=== PATIENT | female | born 1960 | race African-American/Black ===

== ENCOUNTER → 2017-02-10 | Outpatient (CLI) | payer BC ==
[~2017-02-10] MED LIST: ASMANEX220 MCG PO; ASPIRIN81 M1 PO; BACTRIM DS 8001 TA1 PO; CLINDAMYCIN150 MG PO; COZAAR100 MG PO; HYZAAR 50/12.5M1 TAB PO; LOSARTAN POTASS1 TA9 PO; MEDROL DOSEPAK4 MG PO; METFORMIN ER500 MG PO; METOPROLOL SUCC50 M1 PO; METOPROLOL50 MG PO; NAPROSYN500 MG PO; PERCOCET 325 MG1 TA2 PO; PRILOSEC20 MG PO; ZITHROMAX250 MG PO
[2017-02-10 07:32] LABS: HEMOGLOBIN 12.1 g/dl (12.0-16.0); MEAN CELL VOLUME 85.8 fl (81.0-99.0); MEAN CORPUSCULAR HGB 28.1 pg (27.0-31.0); MEAN CORPUSCULAR HGB CONC 32.7 g/dl (33.0-37.0); MEAN PLATELET VOLUME 9.2 fl (9.6-12.3); RED BLOOD COUNT 4.31 10*6/uL (4.10-5.10); RED CELL DISTRI WIDTH 13.3 % (0-14.5); WHITE BLOOD COUNT 4.3 10*3/uL (4.8-10.8)
[2017-02-10 08:05] LABS: ALBUMIN 3.6 gm/dl (3.1-4.5); BUN 16 mg/dl (7-24); CARBON DIOXIDE 27 mmol/L (21-32); CHLORIDE 103 mmol/L (98-107); GLUCOSE 93 mg/dL (65-99); HDL CHOLESTEROL 89 mg/dl (40-60); POTASSIUM 3.7 mmol/L (3.5-5.1); SODIUM 141 mmol/L (136-145)
[2017-02-10 08:09] LABS: ALKALINE PHOSPHATASE 85 U/L (45-117); BILIRUBIN, TOTAL 0.3 mg/dl (0.2-1.0); CHOLESTEROL 200 mg/dL (<200); EST GLOM FILT AFRICAN AMERICAN > 60 ml/min; LDL CHOLESTEROL 100 mg/dL (9-159); SGOT/AST 16 IU/L (3-35); SGPT/ALT 29 U/L (12-78); TRIGLYCERIDES 56 mg/dl (<150); VLDL CHOLESTEROL 11 mg/dL (6-40)
[2017-02-10 08:25] LABS: HEMOGLOBIN A1c 5.2 % (4.8-5.6)
== END | disposition home or self-care (01) ==
LOC: LAB 07:15
PROVIDERS: Family Medicine
DX: I10 Essential (primary) hypertension (principal); E74.9 Disorder of carbohydrate metabolism, unspecified; D64.9 Anemia, unspecified; E55.9 Vitamin D deficiency, unspecified

== ENCOUNTER → 2017-04-06 | Outpatient (CLI) | payer BC | END | disposition home or self-care (01) | LOC: MRI 04-01 15:00 | DX: M75.101 Unspecified rotator cuff tear or rupture of right shoulder, not specified as traumatic (principal) ==

== ENCOUNTER → 2017-05-15 | Outpatient (CLI) | payer OTHER ==
[2017-05-15 07:33] LABS: HEMATOCRIT 39.3 % (37.0-47.0); HEMOGLOBIN 12.4 g/dl (12.0-16.0); MEAN CELL VOLUME 88.1 fl (81.0-99.0); MEAN CORPUSCULAR HGB 27.8 pg (27.0-31.0); MEAN CORPUSCULAR HGB CONC 31.6 g/dl (33.0-37.0); MEAN PLATELET VOLUME 9.8 fl (9.6-12.3); RED BLOOD COUNT 4.46 10*6/uL (4.10-5.10); RED CELL DISTRI WIDTH 12.9 % (0-14.5); WHITE BLOOD COUNT 3.2 10*3/uL (4.8-10.8)
[2017-05-15 07:55] LABS: ALBUMIN 3.9 gm/dl (3.1-4.5); ALKALINE PHOSPHATASE 81 U/L (45-117); BILIRUBIN, TOTAL 0.4 mg/dl (0.2-1.0); BUN 17 mg/dl (7-24); CARBON DIOXIDE 31 mmol/L (21-32); CHLORIDE 102 mmol/L (98-107); EST GLOM FILT AFRICAN AMERICAN > 60 ml/min; GLUCOSE 96 mg/dL (65-99); POTASSIUM 3.8 mmol/L (3.5-5.1); SGOT/AST 19 IU/L (3-35); SGPT/ALT 28 U/L (12-78); SODIUM 144 mmol/L (136-145); TOTAL PROTEIN 7.5 gm/dL (6.4-8.2)
== END | disposition home or self-care (01) ==
LOC: LAB 06:56
PROVIDERS: Family Medicine
DX: E55.9 Vitamin D deficiency, unspecified (principal); I10 Essential (primary) hypertension; D72.819 Decreased white blood cell count, unspecified

== ENCOUNTER → 2017-06-03 | Outpatient (CLI) | payer OTHER | END | disposition home or self-care (01) | LOC: ORTHO 03:20 | DX: M17.12 Unilateral primary osteoarthritis, left knee (principal) ==

== ENCOUNTER → 2017-08-18 | Outpatient (CLI) | payer OTHER ==
[2017-08-18 10:54] LABS: HEMATOCRIT 39.3 % (37.0-47.0); HEMOGLOBIN 12.5 g/dl (12.0-16.0); MEAN CELL VOLUME 90.8 fl (81.0-99.0); MEAN CORPUSCULAR HGB 28.9 pg (27.0-31.0); MEAN CORPUSCULAR HGB CONC 31.8 g/dl (33.0-37.0); MEAN PLATELET VOLUME 10.4 fl (9.6-12.3); RED BLOOD COUNT 4.33 10*6/uL (4.10-5.10); RED CELL DISTRI WIDTH 13.1 % (0-14.5); WHITE BLOOD COUNT 3.5 10*3/uL (4.8-10.8)
[2017-08-18 11:07] LABS: ALBUMIN 3.6 gm/dl (3.1-4.5); BUN 13 mg/dl (7-24); CHLORIDE 103 mmol/L (98-107); CHOLESTEROL 210 mg/dL (<200); HDL CHOLESTEROL 98 mg/dl (40-60); LDL CHOLESTEROL 103 mg/dL (9-159); POTASSIUM 3.6 mmol/L (3.5-5.1); SGOT/AST 19 IU/L (3-35); SGPT/ALT 24 U/L (12-78); SODIUM 139 mmol/L (136-145); TOTAL PROTEIN 7.3 gm/dL (6.4-8.2); TRIGLYCERIDES 43 mg/dl (<150); VLDL CHOLESTEROL 9 mg/dL (6-40)
[2017-08-18 11:15] LABS: ALKALINE PHOSPHATASE 103 U/L (45-117); THYROID STIM HORMONE (HS) 0.731 uIU/ml (0.358-4.75)
== END | disposition home or self-care (01) ==
LOC: LAB 10:29
PROVIDERS: Family Medicine
DX: D64.9 Anemia, unspecified (principal); E55.9 Vitamin D deficiency, unspecified; I10 Essential (primary) hypertension; E05.90 Thyrotoxicosis, unspecified without thyrotoxic crisis or storm; Z79.899 Other long term (current) drug therapy

== ENCOUNTER → 2018-05-06 | Outpatient (CLI) | payer OTHER | LOC: ORTHO 19:38 | DX: M77.32 Calcaneal spur, left foot (principal) ==

== ENCOUNTER → 2018-05-18 | Outpatient (CLI) | payer OTHER ==
[2018-05-18 10:21] LABS: HEMATOCRIT 39.6 % (37.0-47.0); MEAN CELL VOLUME 92.5 fl (81.0-99.0); MEAN CORPUSCULAR HGB CONC 30.3 g/dl (33.0-37.0); MEAN PLATELET VOLUME 10.1 fl (9.6-12.3); RED BLOOD COUNT 4.28 10*6/uL (4.10-5.10); RED CELL DISTRI WIDTH 12.5 % (0-14.5); WHITE BLOOD COUNT 3.9 10*3/uL (4.8-10.8)
[2018-05-18 10:22] LABS: ALBUMIN 3.8 gm/dl (3.1-4.5); ALKALINE PHOSPHATASE 91 U/L (45-117); BUN 19 mg/dl (7-24); CHLORIDE 105 mmol/L (98-107); CHOLESTEROL 204 mg/dL (<200); CREATININE 0.93 mg/dL (0.55-1.02); HDL CHOLESTEROL 96 mg/dl (40-60); LDL CHOLESTEROL 95 mg/dL (9-159); POTASSIUM 3.7 mmol/L (3.5-5.1); SGOT/AST 16 IU/L (3-35); SGPT/ALT 28 U/L (12-78); SODIUM 144 mmol/L (136-145); TOTAL PROTEIN 7.6 gm/dL (6.4-8.2); TRIGLYCERIDES 66 mg/dl (<150); VLDL CHOLESTEROL 13 mg/dL (6-40)
== END | disposition home or self-care (01) ==
LOC: LAB 09:13
PROVIDERS: Family Medicine
DX: E78.00 Pure hypercholesterolemia, unspecified (principal); E74.9 Disorder of carbohydrate metabolism, unspecified; I10 Essential (primary) hypertension; D72.819 Decreased white blood cell count, unspecified; Z79.899 Other long term (current) drug therapy

== ENCOUNTER → 2018-07-30 | Outpatient (CLI) | payer OTHER ==
[2018-07-30 08:28] LABS: CPK 104 U/L (26-192)
[2018-07-31 07:03] LABS: RHEUMATOID ARTHRITIS FACTOR <10.0 IU/mL (0.0-13.9)
== END | disposition home or self-care (01) ==
LOC: LAB 07:34
PROVIDERS: Family Medicine
DX: M79.1 Myalgia (principal); M25.50 Pain in unspecified joint

== ENCOUNTER → 2018-08-20 | Outpatient (CLI) | payer OTHER | END | disposition home or self-care (01) | LOC: MRI 09:46 | DX: M19.011 Primary osteoarthritis, right shoulder (principal); M75.51 Bursitis of right shoulder; M75.52 Bursitis of left shoulder; M75.82 Other shoulder lesions, left shoulder; M75.81 Other shoulder lesions, right shoulder ==

== ENCOUNTER → 2019-03-09 | Outpatient (CLI) | payer OTHER ==
[~2019-03-09] MED LIST changes: +PERCOCET 5-3251 EACH PO; +ZOFRAN4 MG PO
== END | disposition home or self-care (01) ==
LOC: RESCLI 14:25
DX: J45.909 Unspecified asthma, uncomplicated (principal); J18.9 Pneumonia, unspecified organism; R06.02 Shortness of breath; R05 Cough; I10 Essential (primary) hypertension; R09.89 Other specified symptoms and signs involving the circulatory and respiratory systems; E66.3 Overweight; Z79.899 Other long term (current) drug therapy; Z91.040 Latex allergy status

== ENCOUNTER → 2019-05-05 | Outpatient (CLI) | payer OTHER ==
[2019-05-05 16:09] LABS: BILIRUBIN NEGATIVE (NEGATIVE); BLOOD NEGATIVE (NEGATIVE); CLARITY CLEAR (CLEAR); COLOR YELLOW (YELLOW); GLUCOSE NEGATIVE (NEGATIVE); KETONE NEGATIVE (NEGATIVE); LEUKO ESTERASE TRACE (NEGATIVE); NITRITE NEGATIVE (NEGATIVE); PH 7.5 (5.0-9.0)
[2019-05-05 16:11] LABS: BASO % 0.3 % (0.0-1.0); EOS # 0.1 10*3/uL (0.0-0.4); EOS % 4.4 % (1.0-4.0); HEMATOCRIT 39.5 % (37.0-47.0); HEMOGLOBIN 12.4 g/dl (12.0-16.0); LYMPH # 1.5 10*3/uL (1.3-4.4); LYMPH % 46.7 % (27.0-41.0); MEAN CELL VOLUME 93.4 fl (81.0-99.0); MEAN CORPUSCULAR HGB 29.3 pg (27.0-31.0); MEAN CORPUSCULAR HGB CONC 31.4 g/dl (33.0-37.0); MEAN PLATELET VOLUME 9.8 fl (9.6-12.3); MONO # 0.4 10*3/uL (0.1-1.0); MONO % 13.6 % (3.0-9.0); NEUT # 1.1 10*3/uL (2.3-7.9); PLATELET COUNT AUTOMATED 206 10*3/uL (130-400); RED BLOOD COUNT 4.23 10*6/uL (4.10-5.10); WHITE BLOOD COUNT 3.2 10*3/uL (4.8-10.8)
[2019-05-05 16:17] LABS: BACTERIA 1+; HYALINE CAST 0-2
[2019-05-05 16:32] LABS: BUN 21 mg/dl (7-24); CHLORIDE 105 mmol/L (98-107); CREATININE 0.96 mg/dL (0.55-1.02); POTASSIUM 3.8 mmol/L (3.5-5.1); SODIUM 142 mmol/L (136-145)
== END | disposition home or self-care (01) ==
LOC: LAB 13:57
PROVIDERS: Orthopaedic Surgery
DX: J84.10 Pulmonary fibrosis, unspecified (principal); M75.102 Unspecified rotator cuff tear or rupture of left shoulder, not specified as traumatic

== ENCOUNTER → 2019-05-06 | Outpatient (CLI) | payer OTHER ==
--- NOTE | ~2019-05-06 | EKG ---
[place], [place] ELECTROCARDIOGRAM REPORT NAME: KUSHAL RYAN UNIT #: [id number] ROOM: DOCTOR: LAVERNE DRAFT REPORT BIRTHDATE: [birth year] [facility] [place] Test Date: 2019-05-06 Test Time: 15:24:06 Pat Name: KUSHAL RYAN Department: Room: Gender: F Paleology Professor: NORMA : 1960 Requested By: SINDHU HERNANDEZ Order Number: [id number] Reading MD: Jewel Gupta Measurements Intervals [place] Rate: 82 P: 73 ND: 170 QRS: 10 QRSD: 61 T: 43 QT: 359 QTc: 420 Interpretive Statements Sinus rhythm Probable left atrial enlargement Electronically Signed On 05-08-2019 12:48:44 PDT by Jewel Gupta CM:EKGRPT:ELECTROCARDIOGRAM REPORT 1524 [id number] SINDHU LAMAR DRAFT REPORT SINDHU HERNANDEZ DO
== END | disposition home or self-care (01) ==
LOC: CARD 15:00
DX: M75.102 Unspecified rotator cuff tear or rupture of left shoulder, not specified as traumatic (principal)

== ENCOUNTER → 2019-05-12 | Day surgery (SDC) | payer OTHER ==
[2019-05-05 14:10] VITALS: BP 132/57
[~2019-05-12] VITALS: Ht 160 cm; Wt 69.9 kg
[2019-05-12] VITALS (7 sets, daily range): BP systolic 120–144; BP diastolic 64–88
--- NOTE | ~2019-05-12 | O ---
[place], [place] OPERATIVE NOTE NAME: [id number] UNIT #: [id number] ROOM: DOCTOR: SINDHU GROVE DO BIRTHDATE: [birth year] DOS: 05/12/2019 PREOPERATIVE DIAGNOSES: Left shoulder partial rotator cuff tear, impingement and acromioclavicular arthritis. POSTOPERATIVE DIAGNOSES: Left shoulder partial rotator cuff tear, impingement, acromioclavicular arthritis and loose body and labral tear. SURGICAL PROCEDURE: Left shoulder arthroscopy with debridement of the partial rotator cuff tear and removal of the glenohumeral loose body and debridement of the labral tear and arthroscopic subacromial decompression and Libertad procedure. SURGEON: Sindhu Grove DO BOIL OFF MACHINE OPERATOR CLOTH: Tiffanie Reyes. ANESTHESIA: BLACK [place]. Interscalene block, general endotracheal intubation. INDICATIONS: The patient is a 59-year-old female with a history of pain and disability about the left shoulder. At times, she has severe pain and weakness. This has been unrelieved with conservative care. MRI indicated a partial rotator cuff tear with impingement at the subacromial region and acromioclavicular joint arthritis. The risks and benefits of the procedure were explained to the patient preoperatively. Preoperative labs and x-rays were obtained. DESCRIPTION OF PROCEDURE: The left upper extremity was marked in the holding room. The patient was brought to the operative suite after an interscalene block had been performed by Anesthesia. The patient was placed supine on the shoulder table. General anesthetic with endotracheal intubation was performed. The patient received Ancef 2 grams IV piggyback preoperatively. The left upper extremity was prepped and draped in the usual orthopedic manner. Time-out was performed. The area about the posterior, lateral and anterior portals was injected with Marcaine 0.5% with epinephrine. The posterior portal was created 1 cm distal to the lateral posterior acromion. This was made sharply with a scalpel through the dermis and subcutaneous tissue but not into the joint. The blunt trocar and cannula were used to enter the glenohumeral joint. The trocar was removed. The arthroscopy camera was placed through the cannula. The inflow and the outflow were established through the cannula. The shoulder was evaluated in a systematic fashion. There was noted to be an inferior degenerative tear in the labrum as well as from irritation at the biceps tendon. Loose body was noted within the glenohumeral joint. The glenoid and the humeral articular surface appeared intact. The camera was used to locate the rotator interval. The switching stick was placed through the camera sheath. The area of the anterior portal was made sharply with a scalpel. A 5.75 mm cannula was placed over the switching stick and advanced into the joint. The arthroscopy camera was returned through the cannula within the posterior portal. The instrumentation was placed through the anterior portal including a full [place], [place] OPERATIVE NOTE NAME: KUSHAL RYAN UNIT #: [id number] ROOM: DOCTOR: SINDHU GROVE DO BIRTHDATE: [birth year] radius resector and an Arthrocare arthroscopy wand. The undersurface of the biceps tendon was evaluated and the minimal synovitis was debrided with the arthroscopy wand. The inferior degenerative changes within the labrum were debrided with the arthroscopy wand. The full-radius resector was used to remove and suck out the loose body, which appeared to be cartilaginous and bony in nature. When this was completed, the remainder of the glenohumeral joint was evaluated and no significant abnormalities were appreciated. The instrumentation was removed and the blunt trocar and cannula were used to enter the posterior portal and into the subacromial space. A lateral portal was created. The arthroscopy camera was placed through the cannula posteriorly and the blunt trocar was placed laterally. The undersurface of the acromion was cleared of bursal tissue using the blunt trocar. Two spinal needles were used to place at the anterior acromion laterally and medially at the acromioclavicular joint. Under visualization of the arthroscopy camera, the bursal tissue was debrided using the arthroscopy wand as well as a full radius resector. Minimal tearing was noted in the supraspinatus tendon and this was gently debrided using the arthroscopy wand. This did not appear to be more than 25%. When the undersurface of the acromion and the acromioclavicular joint had been cleared of bursal tissue and the capsule at the acromioclavicular joint, the arthroscopy wand was used to release the coracoacromial ligament. This was completed. The bur was placed through the lateral portal and the anterior portion of the acromion was debrided with the oblong bur as was the acromioclavicular joint. The portals were switched using the arthroscopy camera laterally and the full radius resector and bur posteriorly to further debride the acromioclavicular joint and anterior portion of the acromion. When this was completed, the shoulder was copiously irrigated with normal saline with epinephrine. Instrumentation was removed. The portals were expressed of any excess fluid. The portals were closed with 3-0 nylon in a simple fashion. Xeroform, 4 x 4s, ABDs, and Tegaderm dressing were applied. The patient was placed in a sling and returned to a supine position. The anesthetic was reversed. The patient was extubated and taken to the recovery room in satisfactory condition. Sponge and needle count correct. ESTIMATED BLOOD LOSS: 10 mL. FINDINGS: 1. Left shoulder partial rotator cuff tear, supraspinatus tendon. 2. Glenohumeral loose body. 3. Inferior degenerative tear of the labrum. 4. Subacromial impingement. 5. Acromioclavicular joint arthritis. COMPLICATIONS: None. [place], [place] OPERATIVE NOTE NAME: KUSHAL RYAN UNIT #: [id number] ROOM: DOCTOR: SINDHU GROVE DO BIRTHDATE: [birth year] SPECIMENS: None. DRAINS: None. PACKING: None. SINDHU GROVE DO CM:OPRECORD:OPERATIVE NOTE 1050 1112 SINDHU GROVE DO 05/12/19 1112 interface
== END | disposition home or self-care (01) ==
LOC: SDC 05-05 14:00
DX: M75.112 Incomplete rotator cuff tear or rupture of left shoulder, not specified as traumatic (principal); M65.9 Synovitis and tenosynovitis, unspecified; M25.812 Other specified joint disorders, left shoulder; M13.812 Other specified arthritis, left shoulder; I10 Essential (primary) hypertension; E11.9 Type 2 diabetes mellitus without complications; Z91.040 Latex allergy status; Z98.890 Other specified postprocedural states; Z79.899 Other long term (current) drug therapy; Z72.89 Other problems related to lifestyle; Z79.84 Long term (current) use of oral hypoglycemic drugs; Z83.3 Family history of diabetes mellitus; Z82.49 Family history of ischemic heart disease and other diseases of the circulatory system; Z82.3 Family history of stroke

== ENCOUNTER → 2019-06-27 | Outpatient (CLI) | payer OTHER | END | disposition home or self-care (01) | LOC: ORTHO 00:51 | DX: M17.12 Unilateral primary osteoarthritis, left knee (principal) ==

== ENCOUNTER → 2019-09-21 | Outpatient (CLI) | payer OTHER ==
[2019-09-21 10:36] LABS: HEMATOCRIT 41.9 % (37.0-47.0); HEMOGLOBIN 13.2 g/dl (12.0-16.0); MEAN CELL VOLUME 91.3 fl (81.0-99.0); MEAN CORPUSCULAR HGB 28.8 pg (27.0-31.0); MEAN CORPUSCULAR HGB CONC 31.5 g/dl (33.0-37.0); MEAN PLATELET VOLUME 9.6 fl (9.6-12.3); PLATELET COUNT AUTOMATED 259 10*3/uL (130-400); RED BLOOD COUNT 4.59 10*6/uL (4.10-5.10); RED CELL DISTRI WIDTH 12.5 % (0-14.5)
[2019-09-21 11:07] LABS: ATYPICAL LYMPHS 8 % (0-0); BASOPHILS 3 % (0-1); PLATELET SUFFICIENCY NORMAL (NORMAL); TOTAL CELLS COUNTED 100 #CELLS
[2019-09-21 11:11] LABS: THYROID STIM HORMONE (HS) 0.599 uIU/ml (0.358-4.75)
[2019-09-22 15:04] LABS: ANTI-DSDNA ANTIBODIES 096339 <1 IU/mL (0-9); ANTI-RNP ANTIBODIES 0.4 AI (0.0-0.9); ANTICHROMATIN ANTIBODIES <0.2 AI (0.0-0.9); ANTISCLERODERMA-70 AB 0.4 AI (0.0-0.9); SJOGREN ANTI-SS-A 5.3 AI (0.0-0.9); SJOREN AB, ANTI-SS-B <0.2 AI (0.0-0.9)
== END | disposition home or self-care (01) ==
LOC: ORTHO 01:08
PROVIDERS: Orthopaedic Surgery
DX: R52 Pain, unspecified (principal)

== ENCOUNTER → 2019-11-01 | Outpatient (CLI) | payer OTHER | END | disposition home or self-care (01) | LOC: RESCLI 08:57 | DX: M35.9 Systemic involvement of connective tissue, unspecified (principal); H04.123 Dry eye syndrome of bilateral lacrimal glands; I10 Essential (primary) hypertension; E55.9 Vitamin D deficiency, unspecified; R73.03 Prediabetes; Z79.899 Other long term (current) drug therapy ==

== ENCOUNTER → 2019-12-29 | Outpatient (CLI) | payer OTHER | END | disposition home or self-care (01) | LOC: ORTHO 00:33 | DX: M17.9 Osteoarthritis of knee, unspecified (principal); M25.461 Effusion, right knee ==

== ENCOUNTER → 2020-01-05 | Outpatient (CLI) | payer OTHER | END | disposition home or self-care (01) | LOC: RESCLI 13:02 | DX: M17.12 Unilateral primary osteoarthritis, left knee (principal); H04.123 Dry eye syndrome of bilateral lacrimal glands; I10 Essential (primary) hypertension; R73.03 Prediabetes; E55.9 Vitamin D deficiency, unspecified; E66.3 Overweight; M19.90 Unspecified osteoarthritis, unspecified site; Z79.84 Long term (current) use of oral hypoglycemic drugs; Z79.899 Other long term (current) drug therapy; Z98.890 Other specified postprocedural states ==

== ENCOUNTER → 2020-01-16 | Outpatient (CLI) | payer OTHER | END | disposition home or self-care (01) | LOC: ORTHO 01:23 | DX: M19.011 Primary osteoarthritis, right shoulder (principal) ==

== ENCOUNTER → 2020-06-04 | Outpatient (CLI) | payer OTHER | END | disposition home or self-care (01) | LOC: RAD 03:08 | DX: K21.9 Gastro-esophageal reflux disease without esophagitis (principal); K44.9 Diaphragmatic hernia without obstruction or gangrene ==

== ENCOUNTER → 2020-08-27 | Outpatient (CLI) | payer OTHER ==
[2020-08-27 10:24] LABS: HEMATOCRIT 40.8 % (37.0-47.0); MEAN CELL VOLUME 91.7 fl (81.0-99.0); MEAN CORPUSCULAR HGB 28.3 pg (27.0-31.0); MEAN CORPUSCULAR HGB CONC 30.9 g/dl (33.0-37.0); MEAN PLATELET VOLUME 9.9 fl (9.6-12.3); RED BLOOD COUNT 4.45 10*6/uL (4.10-5.10); RED CELL DISTRI WIDTH 13.1 % (0-14.5); WHITE BLOOD COUNT 3.6 10*3/uL (4.8-10.8)
[2020-08-27 10:54] LABS: ALBUMIN 3.6 gm/dl (3.1-4.5); BUN 20 mg/dl (7-24); CHLORIDE 106 mmol/L (98-107); POTASSIUM 3.9 mmol/L (3.5-5.1); SODIUM 139 mmol/L (136-145)
[2020-08-27 11:06] LABS: ALKALINE PHOSPHATASE 105 U/L (45-117); CHOLESTEROL 245 mg/dL (<200); CREATININE 0.86 mg/dL (0.55-1.02); HDL CHOLESTEROL 118 mg/dl (40-60); LDL CHOLESTEROL 119 mg/dL (9-159); SGOT/AST 16 IU/L (3-35); SGPT/ALT 22 U/L (12-78); TOTAL PROTEIN 7.5 gm/dL (6.4-8.2); TRIGLYCERIDES 38 mg/dl (<150); VLDL CHOLESTEROL 8 mg/dL (6-40)
== END | disposition home or self-care (01) ==
LOC: LAB 09:32
PROVIDERS: ATTEND Nurse Practitioner Family
DX: E55.9 Vitamin D deficiency, unspecified (principal); I10 Essential (primary) hypertension; R53.83 Other fatigue; M79.10 Myalgia, unspecified site

== ENCOUNTER → 2020-12-14 | Outpatient (CLI) | payer OTHER ==
[~2020-12-14] MED LIST changes: +HYDROCODONE-AC1 EAC1 PO; -METFORMIN ER500 MG PO; +METFORMIN HCL1000 M1 PO; +TOPROL XL25 MG PO
== END | disposition home or self-care (01) ==
LOC: MRI 00:48
PROVIDERS: ATTEND Orthopaedic Surgery
DX: M75.121 Complete rotator cuff tear or rupture of right shoulder, not specified as traumatic (principal)

== ENCOUNTER → 2021-01-28 | Outpatient (CLI) | payer OTHER | END | disposition home or self-care (01) | LOC: COVID19 13:01 | PROVIDERS: ATTEND Orthopaedic Surgery | DX: Z01.812 Encounter for preprocedural laboratory examination (principal); Z20.822 Contact with and (suspected) exposure to COVID-19 ==

== ENCOUNTER → 2021-01-31 | Day surgery (SDC) | payer OTHER ==
[2021-01-28 12:26] VITALS: BP 151/75
[~2021-01-31] VITALS: Ht 160 cm; Wt 77.1 kg
[2021-01-31 08:38] VITALS: BP 151/82
[2021-01-31 10:10] VITALS: BP 150/78
[2021-01-31 10:25] VITALS: BP 176/86
[2021-01-31 10:40] VITALS: BP 178/88
== END ==
LOC: SDC 01-28 12:30
PROVIDERS: ATTEND Orthopaedic Surgery
DX: M65.342 Trigger finger, left ring finger (principal); M17.0 Bilateral primary osteoarthritis of knee; M67.442 Ganglion, left hand; Z91.040 Latex allergy status; Z79.899 Other long term (current) drug therapy

== ENCOUNTER → 2021-02-11 | Outpatient (CLI) | payer OTHER | END | disposition home or self-care (01) | LOC: COVID19 14:23 | PROVIDERS: ATTEND Orthopaedic Surgery | DX: Z01.812 Encounter for preprocedural laboratory examination (principal); Z20.822 Contact with and (suspected) exposure to COVID-19 ==

== ENCOUNTER → 2021-03-15 | Outpatient (CLI) | payer OTHER | END | disposition home or self-care (01) | LOC: ORTHO 01:18 | PROVIDERS: ATTEND Orthopaedic Surgery | DX: S46.811D Strain of other muscles, fascia and tendons at shoulder and upper arm level, right arm, subsequent encounter (principal); X58.XXXD Exposure to other specified factors, subsequent encounter ==

== ENCOUNTER → 2021-04-10 | Outpatient (CLI) | payer OTHER ==
[2021-04-10 08:30] LABS: BASO % 0.6 % (0.0-1.0); EOS # 0.1 10*3/uL (0.0-0.4); EOS % 3.6 % (1.0-4.0); HEMATOCRIT 38.2 % (37.0-47.0); LYMPH # 1.8 10*3/uL (1.3-4.4); LYMPH % 48.9 % (27.0-41.0); MEAN CELL VOLUME 90.1 fl (81.0-99.0); MEAN CORPUSCULAR HGB 28.3 pg (27.0-31.0); MEAN CORPUSCULAR HGB CONC 31.4 g/dl (33.0-37.0); MEAN PLATELET VOLUME 9.7 fl (9.6-12.3); MONO # 0.6 10*3/uL (0.1-1.0); MONO % 16.6 % (3.0-9.0); NEUT # 1.1 10*3/uL (2.3-7.9); NEUT % 30.3 % (47.0-73.0); PLATELET COUNT AUTOMATED 246 10*3/uL (130-400); RED BLOOD COUNT 4.24 10*6/uL (4.10-5.10); WHITE BLOOD COUNT 3.6 10*3/uL (4.8-10.8)
== END | disposition home or self-care (01) ==
LOC: LAB 08:14
PROVIDERS: ATTEND Family Medicine
DX: D72.819 Decreased white blood cell count, unspecified (principal)

== ENCOUNTER → 2021-12-11 | Outpatient (CLI) | payer OTHER | END | disposition home or self-care (01) | LOC: RAD 07:27 | PROVIDERS: ATTEND Orthopaedic Surgery | DX: M17.12 Unilateral primary osteoarthritis, left knee (principal); M17.11 Unilateral primary osteoarthritis, right knee; M25.462 Effusion, left knee; M25.461 Effusion, right knee ==

== ENCOUNTER → 2021-12-13 | Outpatient (CLI) | payer OTHER ==
[2021-12-13 07:55] LABS: HEMATOCRIT 38.7 % (37.0-47.0); MEAN CELL VOLUME 90.4 fl (81.0-99.0); MEAN CORPUSCULAR HGB 28.3 pg (27.0-31.0); MEAN CORPUSCULAR HGB CONC 31.3 g/dl (33.0-37.0); MEAN PLATELET VOLUME 9.3 fl (9.6-12.3); RED BLOOD COUNT 4.28 10*6/uL (4.10-5.10); RED CELL DISTRI WIDTH 13.1 % (0-14.5); WHITE BLOOD COUNT 3.3 10*3/uL (4.8-10.8)
[2021-12-13 08:14] LABS: ALBUMIN 3.7 gm/dl (3.1-4.5); ALKALINE PHOSPHATASE 120 U/L (45-117); BUN 16 mg/dl (7-24); CHLORIDE 104 mmol/L (98-107); CHOLESTEROL 250 mg/dL (<200); CREATININE 0.88 mg/dL (0.55-1.02); FREE T4 0.87 ng/dl (0.76-1.46); LDL CHOLESTEROL 131 mg/dL (9-159); POTASSIUM 3.9 mmol/L (3.5-5.1); SGOT/AST 20 IU/L (3-35); SGPT/ALT 25 U/L (12-78); SODIUM 138 mmol/L (136-145); TOTAL PROTEIN 7.9 gm/dL (6.4-8.2); TRIGLYCERIDES 80 mg/dl (<150)
[2021-12-13 11:15] LABS: VITAMIN D, 25-HYDROXY 60.1 ng/mL (30-100)
== END ==
LOC: LAB 07:37
PROVIDERS: ATTEND Family Medicine
DX: I10 Essential (primary) hypertension (principal); E78.00 Pure hypercholesterolemia, unspecified; R53.83 Other fatigue

== ENCOUNTER → 2022-02-04 | Outpatient (CLI) | payer OTHER ==
[2022-02-04 07:40] LABS: MEAN CELL VOLUME 87.4 fl (81.0-99.0); MEAN CORPUSCULAR HGB 28.3 pg (27.0-31.0); MEAN CORPUSCULAR HGB CONC 32.4 g/dl (33.0-37.0); RED BLOOD COUNT 4.35 10*6/uL (4.10-5.10); RED CELL DISTRI WIDTH 12.7 % (0-14.5); WHITE BLOOD COUNT 3.5 10*3/uL (4.8-10.8)
[2022-02-04 07:56] LABS: ALKALINE PHOSPHATASE 122 U/L (45-117); BUN 10 mg/dl (7-24); CHLORIDE 104 mmol/L (98-107); CHOLESTEROL 245 mg/dL (<200); CREATININE 0.99 mg/dL (0.55-1.02); LDL CHOLESTEROL 123 mg/dL (9-159); POTASSIUM 3.4 mmol/L (3.5-5.1); SGOT/AST 23 IU/L (3-35); SGPT/ALT 28 U/L (12-78); SODIUM 139 mmol/L (136-145); TOTAL PROTEIN 7.9 gm/dL (6.4-8.2); TRIGLYCERIDES 94 mg/dl (<150)
[2022-02-04 08:48] LABS: VITAMIN D, 25-HYDROXY 57.9 ng/mL (30-100)
== END | disposition home or self-care (01) ==
LOC: LAB 07:22
PROVIDERS: ATTEND Family Medicine
DX: I25.10 Atherosclerotic heart disease of native coronary artery without angina pectoris (principal); K21.9 Gastro-esophageal reflux disease without esophagitis; I10 Essential (primary) hypertension; E74.9 Disorder of carbohydrate metabolism, unspecified; R53.83 Other fatigue; E78.00 Pure hypercholesterolemia, unspecified

== ENCOUNTER 2022-03-04 00:44 | Inpatient (IN) | payer OTHER ==
[2022-02-28 14:21] VITALS: BP 175/87
[2022-03-04] VITALS (9 sets, daily range): BP systolic 106–172; BP diastolic 60–97
[~2022-03-04] VITALS: Ht 160 cm; Wt 88.5 kg
[~2022-03-04 00:44] MED LIST changes: +K2 PLUS D3 TAB1 EACH PO
[2022-03-05] VITALS: BP 155/73
[2022-03-05 06:35] LABS: BUN 18 mg/dl (7-24); CHLORIDE 100 mmol/L (98-107); CREATININE 0.87 mg/dL (0.55-1.02); POTASSIUM 3.7 mmol/L (3.5-5.1); SODIUM 133 mmol/L (136-145)
[2022-03-05 06:57] LABS: BASO % 0.1 % (0.0-1.0); HEMATOCRIT 31.3 % (37.0-47.0); LYMPH # 1.1 10*3/uL (1.3-4.4); LYMPH % 13.6 % (27.0-41.0); MEAN CELL VOLUME 86.9 fl (81.0-99.0); MEAN CORPUSCULAR HGB 27.8 pg (27.0-31.0); MEAN CORPUSCULAR HGB CONC 31.9 g/dl (33.0-37.0); MEAN PLATELET VOLUME 9.9 fl (9.6-12.3); MONO # 1.5 10*3/uL (0.1-1.0); MONO % 17.2 % (3.0-9.0); NEUT # 5.8 10*3/uL (2.3-7.9); NEUT % 68.7 % (47.0-73.0); PLATELET COUNT AUTOMATED 225 10*3/uL (130-400); RED CELL DISTRI WIDTH 12.6 % (0-14.5); WHITE BLOOD COUNT 8.4 10*3/uL (4.8-10.8)
[2022-03-05 08:00] VITALS: BP 160/70
[2022-03-05 12:00] VITALS: BP 149/73
[2022-03-05 16:00] VITALS: BP 166/67
[2022-03-05 20:00] VITALS: BP 162/77
[2022-03-06] VITALS: BP 148/88
[2022-03-06 06:37] LABS: BASO % 0.1 % (0.0-1.0); HEMATOCRIT 33.7 % (37.0-47.0); LYMPH % 12.4 % (27.0-41.0); MEAN CELL VOLUME 85.3 fl (81.0-99.0); MEAN CORPUSCULAR HGB 27.8 pg (27.0-31.0); MEAN CORPUSCULAR HGB CONC 32.6 g/dl (33.0-37.0); MEAN PLATELET VOLUME 9.8 fl (9.6-12.3); MONO # 1.5 10*3/uL (0.1-1.0); MONO % 18.5 % (3.0-9.0); NEUT # 5.5 10*3/uL (2.3-7.9); NEUT % 68.7 % (47.0-73.0); PLATELET COUNT AUTOMATED 219 10*3/uL (130-400); RED BLOOD COUNT 3.95 10*6/uL (4.10-5.10); RED CELL DISTRI WIDTH 12.6 % (0-14.5)
[2022-03-06 08:00] VITALS: BP 132/79
[2022-03-06 12:00] VITALS: BP 151/76
[2022-03-06] MEDS ORDERED: HYDROCODON-ACE1 EACH PO (12:47)
[2022-03-06] MEDS ORDERED: DOCUSATE SOD100 MG PO (12:53)
[2022-03-06] MEDS ORDERED: ASPIRIN ADULT L81 M2 PO (12:53)
== END 2022-03-06 15:15 | disposition home health service (06) | DRG 470 ==
LOC: SDC 00:44 → 4E 07:25 → SDC 07:30 → 4E 13:17 → SDC 14:00 → 4E 03-06 15:15
PROVIDERS: Orthopaedic Surgery; ADMIT Family Medicine; ATTEND Family Medicine
PROC: 0SRD0J9 Replacement of Left Knee Joint with Synthetic Substitute, Cemented, Open Approach (ICD-10-PCS; principal; 2022-03-04)
PROC: 3E0T3BZ Introduction of Anesthetic Agent into Peripheral Nerves and Plexi, Percutaneous Approach (ICD-10-PCS; 2022-03-04)
DX: M17.12 Unilateral primary osteoarthritis, left knee (principal); I10 Essential (primary) hypertension; E55.9 Vitamin D deficiency, unspecified; Z83.3 Family history of diabetes mellitus; Z82.49 Family history of ischemic heart disease and other diseases of the circulatory system; Z91.040 Latex allergy status; Z79.899 Other long term (current) drug therapy

== ENCOUNTER → 2022-03-21 | Outpatient (CLI) | payer OTHER ==
[~2022-03-21] MED LIST changes: +ASPIRIN ADULT L81 M2 PO; +DOCUSATE SOD100 MG PO; +HYDROCODON-ACE1 EACH PO
== END | disposition home or self-care (01) ==
LOC: ORTHO 01:59
PROVIDERS: ATTEND Orthopaedic Surgery
DX: Z47.1 Aftercare following joint replacement surgery (principal)

== ENCOUNTER → 2022-04-18 | Outpatient (CLI) | payer OTHER | END | disposition home or self-care (01) | LOC: ORTHO 01:32 | PROVIDERS: ATTEND Orthopaedic Surgery | DX: Z47.1 Aftercare following joint replacement surgery (principal); Z96.652 Presence of left artificial knee joint ==

== ENCOUNTER → 2022-05-30 | Outpatient (CLI) | payer OTHER ==
[2022-05-30 09:15] LABS: HEMATOCRIT 36.9 % (37.0-47.0); MEAN CELL VOLUME 89.6 fl (81.0-99.0); MEAN CORPUSCULAR HGB 29.1 pg (27.0-31.0); MEAN CORPUSCULAR HGB CONC 32.5 g/dl (33.0-37.0); RED BLOOD COUNT 4.12 10*6/uL (4.10-5.10); RED CELL DISTRI WIDTH 13.6 % (0-14.5); WHITE BLOOD COUNT 4.3 10*3/uL (4.8-10.8)
[2022-05-30 09:34] LABS: BUN 13 mg/dl (7-24); CHLORIDE 105 mmol/L (98-107); POTASSIUM 3.5 mmol/L (3.5-5.1); SODIUM 142 mmol/L (136-145)
[2022-05-30 09:38] LABS: ALKALINE PHOSPHATASE 129 U/L (45-117); CHOLESTEROL 239 mg/dL (<200); CREATININE 0.76 mg/dL (0.55-1.02); LDL CHOLESTEROL 131 mg/dL (9-159); SGOT/AST 20 IU/L (3-35); SGPT/ALT 19 U/L (12-78); TOTAL PROTEIN 7.7 gm/dL (6.4-8.2); TRIGLYCERIDES 100 mg/dl (<150)
[2022-05-30 10:07] LABS: VITAMIN D, 25-HYDROXY 57.4 ng/mL (30-100)
== END | disposition home or self-care (01) ==
LOC: LAB 01:46 → ORTHO 01:46
PROVIDERS: Family Medicine; ATTEND Orthopaedic Surgery
DX: E78.00 Pure hypercholesterolemia, unspecified (principal); E74.9 Disorder of carbohydrate metabolism, unspecified; E87.6 Hypokalemia; K21.9 Gastro-esophageal reflux disease without esophagitis; Z47.1 Aftercare following joint replacement surgery

== ENCOUNTER → 2023-03-09 | Outpatient (CLI) | payer MEDICARE, OTHER ==
[2023-03-09 09:27] LABS: HEMATOCRIT 39.2 % (37.0-47.0); MEAN CELL VOLUME 89.3 fl (81.0-99.0); MEAN CORPUSCULAR HGB 27.3 pg (27.0-31.0); MEAN CORPUSCULAR HGB CONC 30.6 g/dl (33.0-37.0); MEAN PLATELET VOLUME 9.2 fl (9.6-12.3); RED BLOOD COUNT 4.39 10*6/uL (4.10-5.10); RED CELL DISTRI WIDTH 13.7 % (0-14.5); WHITE BLOOD COUNT 4.4 10*3/uL (4.8-10.8)
[2023-03-09 09:52] LABS: ALKALINE PHOSPHATASE 134 U/L (46-116); BUN 15 mg/dl (9-23); CHLORIDE 104 mmol/L (98-107); FREE T4 0.93 ng/dl (0.89-1.76); POTASSIUM 3.4 mmol/L (3.4-5.1); SGPT/ALT 15 U/L (10-49); TOTAL PROTEIN 7.8 gm/dL (6.0-8.0); URIC ACID 5.1 mg/dL (3.1-7.8)
== END | disposition home or self-care (01) ==
LOC: LAB 08:52
PROVIDERS: ATTEND Family Medicine
DX: E78.00 Pure hypercholesterolemia, unspecified (principal); E55.9 Vitamin D deficiency, unspecified; I10 Essential (primary) hypertension; F41.1 Generalized anxiety disorder; E74.00 Glycogen storage disease, unspecified; M19.90 Unspecified osteoarthritis, unspecified site; Z79.899 Other long term (current) drug therapy

== ENCOUNTER → 2023-11-17 | Outpatient (CLI) | payer MEDICARE, OTHER ==
[2023-11-17 10:24] LABS: HEMATOCRIT 38.9 % (37.0-47.0); MEAN CELL VOLUME 90.3 fl (81.0-99.0); MEAN CORPUSCULAR HGB 27.4 pg (27.0-31.0); MEAN CORPUSCULAR HGB CONC 30.3 g/dl (33.0-37.0); MEAN PLATELET VOLUME 9.2 fl (9.6-12.3); RED BLOOD COUNT 4.31 10*6/uL (4.10-5.10); WHITE BLOOD COUNT 3.7 10*3/uL (4.8-10.8)
[2023-11-17 10:52] LABS: ALKALINE PHOSPHATASE 133 U/L (46-116); BUN 13 mg/dl (9-23); CHLORIDE 104 mmol/L (98-107); POTASSIUM 4.3 mmol/L (3.4-5.1); SGPT/ALT 18 U/L (5-49); TOTAL PROTEIN 7.6 gm/dL (6.0-8.0)
== END | disposition home or self-care (01) ==
LOC: LAB 09:33
PROVIDERS: ATTEND Family Medicine
DX: I10 Essential (primary) hypertension (principal); D72.819 Decreased white blood cell count, unspecified; M19.09 Primary osteoarthritis, other specified site; R79.82 Elevated C-reactive protein (CRP)

== ENCOUNTER → 2023-12-21 | Outpatient (CLI) | payer MEDICARE, OTHER | END | disposition home or self-care (01) | LOC: MAMMO 01:19 | PROVIDERS: ATTEND Nurse Practitioner Women's Health | DX: Z12.31 Encounter for screening mammogram for malignant neoplasm of breast (principal); Z78.0 Asymptomatic menopausal state ==

== ENCOUNTER → 2024-04-25 | Outpatient (CLI) | payer MEDICARE, OTHER | END | disposition home or self-care (01) | LOC: ORTHO 02:37 | PROVIDERS: ATTEND Orthopaedic Surgery | DX: M25.462 Effusion, left knee (principal); Z96.652 Presence of left artificial knee joint; Z47.1 Aftercare following joint replacement surgery ==

== ENCOUNTER → 2024-08-11 | Outpatient (CLI) | payer MEDICARE, OTHER ==
[2024-08-11 07:29] LABS: HEMATOCRIT 36.2 % (37.0-47.0); MEAN CELL VOLUME 87.4 fl (81.0-99.0); MEAN CORPUSCULAR HGB 27.1 pg (27.0-31.0); MEAN CORPUSCULAR HGB CONC 30.9 g/dl (33.0-37.0); MEAN PLATELET VOLUME 9.1 fl (9.6-12.3); RED BLOOD COUNT 4.14 10*6/uL (4.10-5.10); RED CELL DISTRI WIDTH 13.8 % (0-14.5); WHITE BLOOD COUNT 4.8 10*3/uL (4.8-10.8)
[2024-08-11 08:40] LABS: ALKALINE PHOSPHATASE 129 U/L (46-116); BUN 14 mg/dl (9-23); CHLORIDE 104 mmol/L (98-107); CHOLESTEROL 227 mg/dL (<200); FREE T4 1.06 ng/dl (0.89-1.76); LDL CHOLESTEROL 142 mg/dL (9-159); POTASSIUM 3.4 mmol/L (3.4-5.1); SGPT/ALT 15 U/L (5-49); TOTAL PROTEIN 7.6 gm/dL (6.0-8.0); TRIGLYCERIDES 72 mg/dl (<150)
== END | disposition home or self-care (01) ==
LOC: LAB 07:11
PROVIDERS: ATTEND Family Medicine
DX: M17.11 Unilateral primary osteoarthritis, right knee (principal); I10 Essential (primary) hypertension; E74.9 Disorder of carbohydrate metabolism, unspecified; E78.00 Pure hypercholesterolemia, unspecified; E55.9 Vitamin D deficiency, unspecified; R53.83 Other fatigue; F41.1 Generalized anxiety disorder; G47.00 Insomnia, unspecified; M25.461 Effusion, right knee; Z96.652 Presence of left artificial knee joint

== ENCOUNTER → 2024-08-18 | Outpatient (CLI) | payer MEDICARE, OTHER | END | disposition home or self-care (01) | LOC: LAB 08:24 | PROVIDERS: ATTEND Orthopaedic Surgery | DX: M25.569 Pain in unspecified knee (principal); R53.83 Other fatigue ==

== ENCOUNTER → 2024-10-17 | Outpatient (CLI) | payer MEDICARE, OTHER ==
[2024-10-17 09:27] LABS: BASO % 0.5 % (0.0-1.0); EOS # 0.2 10*3/uL (0.0-0.4); EOS % 4.1 % (1.0-4.0); HEMATOCRIT 36.4 % (37.0-47.0); MEAN CELL VOLUME 87.5 fl (81.0-99.0); MEAN CORPUSCULAR HGB 26.9 pg (27.0-31.0); MEAN CORPUSCULAR HGB CONC 30.8 g/dl (33.0-37.0); MONO # 0.5 10*3/uL (0.1-1.0); MONO % 12.9 % (3.0-9.0); NEUT # 1.7 10*3/uL (2.3-7.9); NEUT % 41.9 % (47.0-73.0); PLATELET COUNT AUTOMATED 296 10*3/uL (130-400); RED BLOOD COUNT 4.16 10*6/uL (4.10-5.10); RED CELL DISTRI WIDTH 13.5 % (0-14.5); WHITE BLOOD COUNT 3.9 10*3/uL (4.8-10.8)
[2024-10-17 10:06] LABS: BUN 14 mg/dl (9-23); CHLORIDE 101 mmol/L (98-107); POTASSIUM 3.6 mmol/L (3.4-5.1)
[2024-10-17 10:09] LABS: CHOLESTEROL 247 mg/dL (<200); LDL CHOLESTEROL 151 mg/dL (9-159); TRIGLYCERIDES 82 mg/dl (<150)
== END | disposition home or self-care (01) ==
LOC: LAB 08:52
PROVIDERS: Family Medicine; ATTEND Orthopaedic Surgery
DX: Z01.812 Encounter for preprocedural laboratory examination (principal); D68.8 Other specified coagulation defects; R73.03 Prediabetes; E78.00 Pure hypercholesterolemia, unspecified

== ENCOUNTER 2024-11-25 05:12 | Inpatient (IN) | payer MEDICARE, OTHER ==
[~2024-11-25] VITALS: Ht 160 cm; Wt 81.4 kg
[2024-11-25] VITALS (8 sets, daily range): BP systolic 107–128; BP diastolic 46–56
[2024-11-25] MEDS ORDERED: diphenhydrAMINE hydrochloride 50 MG/ML VIAL IV ONE (05:40)
[2024-11-25] MEDS ORDERED: FAMOTIDINE 50 ML IV ONE (05:40)
[2024-11-25] MEDS ORDERED: CEFEPIME HYDROCH2 GM IJ (06:14)
[2024-11-25] MEDS ORDERED: ACETAMINOPHEN500 M5 PO (06:14)
[2024-11-25] MEDS ORDERED: GOOD SENSE ASP325 MG PO (06:14)
[2024-11-25] MEDS ORDERED: IRON325 M1 PO (06:15)
[2024-11-25] MEDS ORDERED: FISH OIL 1,2001 EACH PO (06:15)
[2024-11-25] MEDS ORDERED: LUTEIN6 M2 PO (06:16)
[2024-11-25] MEDS ORDERED: OMEPRAZOLE40 MG PO (06:17)
[2024-11-25] MEDS ORDERED: NYSTATIN1000000 UN PO (06:17)
[2024-11-25] MEDS ORDERED: SEROQUEL25 MG PO (06:18)
[2024-11-25] MEDS ORDERED: OXYCODONE5 M1 PO (06:18)
[2024-11-25] MEDS ORDERED: SENNA-LAX8.6 MG PO (06:19)
[2024-11-25] MEDS ORDERED: VITAMIN C500 M4 PO (06:20)
[2024-11-25] MEDS ORDERED: VITAMIN D3125 MC1 PO (06:20)
[2024-11-25] MEDS ORDERED: VANCOMYCIN1.5 GM/300 IV (06:20)
[2024-11-25 06:40] LABS: HEMATOCRIT 28.3 % (37.0-47.0); MEAN CELL VOLUME 86.5 fl (81.0-99.0); MEAN CORPUSCULAR HGB 26.9 pg (27.0-31.0); MEAN CORPUSCULAR HGB CONC 31.1 g/dl (33.0-37.0); MEAN PLATELET VOLUME 9.6 fl (9.6-12.3); PLATELET COUNT AUTOMATED 259 10*3/uL (130-400); RED BLOOD COUNT 3.27 10*6/uL (4.10-5.10); RED CELL DISTRI WIDTH 14.3 % (0-14.5); WHITE BLOOD COUNT 3.2 10*3/uL (4.8-10.8)
[2024-11-25 07:01] LABS: POTASSIUM 3.5 mmol/L (3.4-5.1); TOTAL PROTEIN 6.4 gm/dL (6.0-8.0)
[2024-11-25 07:12] LABS: MANUAL DIFF REFLEX YES
[2024-11-25] MEDS ORDERED: BISACODYL 10 MG SUPP R PRN (07:20)
[2024-11-25] MEDS ORDERED: Magnesium Hydroxide 30 ML UDC PO PRN (07:20)
[2024-11-25] MEDS ORDERED: ACETAMINOPHEN 650 MG SUPP R PRN (07:20)
[2024-11-25] MEDS ORDERED: BISACODYL 5 MG TAB PO PRN (07:20)
[2024-11-25] MEDS ORDERED: Ondansetron Hydrochloride 4 MG/2 ML VIAL IV PRN (07:20)
[2024-11-25] MEDS ORDERED: ACETAMINOPHEN 325 MG TAB PO PRN (07:20)
[2024-11-25] MEDS ORDERED: diphenhydrAMINE hydrochloride 50 MG/ML VIAL IV PRN (07:35)
[2024-11-25 08:27] LABS: BURR CELLS FEW; PLATELET SUFFICIENCY NORMAL (NORMAL); TOTAL CELLS COUNTED 100 #CELLS; VACUOLATION OF NEUTROPHILS SLIGHT
[2024-11-25] MEDS ORDERED: Enoxaparin Sodium 30 MG/0.3 ML SYR SC SCH (10:00)
[2024-11-25] MEDS ORDERED: SODIUM CHLORIDE 0.9% 1,000 ML IV SCH (14:30)
[2024-11-25] MEDS ORDERED: OXYCODONE HCL (IR) 5 MG TAB PO PRN ×2 (16:55→21:15)
[2024-11-25] MEDS ORDERED: HYDROCHLOROTHIAZIDE PO ONE (17:10)
[2024-11-25] MEDS ORDERED: LOSARTAN PO ONE (17:10)
[2024-11-25] MEDS ORDERED: HYDROCHLOROTHIAZIDE 25 MG TAB PO ONE (17:20)
[2024-11-25] MEDS ORDERED: Losartan Potassium 100 MG TABLET PO ONE (17:20)
[2024-11-25] MEDS ORDERED: NYSTATIN 500,000 UNITS/5 ML UDC PO SCH (18:00)
[2024-11-25 20:13] LABS: BILIRUBIN Negative (Negative); BLOOD 2+ (Negative); CLARITY Cloudy (Clear); COLOR Yellow (Yellow); GLUCOSE Negative (Negative); KETONE Trace (Negative); LEUKO ESTERASE Negative (Negative); NITRITE Negative (Negative); PH 5.5 (4.5-8.0); SPECIFIC GRAVITY 1.015 (1.001-1.030); UROBILINOGEN 0.2 E.U./dl (0.0-1.0)
[2024-11-25 20:32] LABS: BACTERIA 2+
[2024-11-25 20:39] LABS: RBC 0-2 rbc/hpf (0-2)
[2024-11-25] MEDS ORDERED: QUETIAPINE FUMARATE 25 MG TAB PO SCH (22:00)
[2024-11-25] MEDS ORDERED: ASPIRIN 325 MG TAB PO SCH (22:00)
[2024-11-26] MEDS ORDERED: Pantoprazole Sodium 40 MG TAB PO SCH (06:00)
[2024-11-26 06:03] LABS: BASO % 0.3 % (0.0-1.0); EOS # 0.4 10*3/uL (0.0-0.4); EOS % 12.9 % (1.0-4.0); HEMATOCRIT 27.8 % (37.0-47.0); MEAN CELL VOLUME 88.5 fl (81.0-99.0); MEAN CORPUSCULAR HGB 26.1 pg (27.0-31.0); MEAN CORPUSCULAR HGB CONC 29.5 g/dl (33.0-37.0); MEAN PLATELET VOLUME 9.9 fl (9.6-12.3); MONO # 0.3 10*3/uL (0.1-1.0); MONO % 8.6 % (3.0-9.0); NEUT # 1.6 10*3/uL (2.3-7.9); NEUT % 51.1 % (47.0-73.0); PLATELET COUNT AUTOMATED 271 10*3/uL (130-400); RED BLOOD COUNT 3.14 10*6/uL (4.10-5.10); RED CELL DISTRI WIDTH 14.5 % (0-14.5)
[2024-11-26 06:20] LABS: ACT PARTIAL THROMBO TIME 39.3 SECONDS (20.0-32.1)
[2024-11-26 06:54] LABS: POTASSIUM 3.2 mmol/L (3.4-5.1)
[2024-11-26 07:06] LABS: MEASLES (RUBEOLA) Abs, IgG >300.0 AU/mL (Immune >16.4); RUBELLA Abs, IgM <20.0 AU/mL (0.0-19.9)
[2024-11-26 07:55] VITALS: BP 123/67
[2024-11-26 08:00] VITALS: BP 130/65
[2024-11-26] MEDS ORDERED: ASCORBIC ACID 500 MG TAB PO SCH (10:00)
[2024-11-26] MEDS ORDERED: Cholecalciferol 5,000 IU CAP (125 MCG) PO SCH (10:00)
[2024-11-26] MEDS ORDERED: FERROUS SULFATE 325 MG TAB PO SCH (10:00)
[2024-11-26] MEDS ORDERED: Fish Oil 1,000 MG CAP PO SCH (10:00)
[2024-11-26 11:11] VITALS: BP 116/37
[2024-11-26 16:00] VITALS: BP 128/41
[2024-11-26] MEDS ORDERED: POTASSIUM CHLORIDE 20 MEQ TAB PO ONE (19:20)
[2024-11-26 19:31] VITALS: BP 127/59
[2024-11-26 22:01] VITALS: BP 124/52
[2024-11-27 04:17] VITALS: BP 128/61
[2024-11-27 05:06] LABS: POTASSIUM 3.6 mmol/L (3.4-5.1); TOTAL PROTEIN 6.5 gm/dL (6.0-8.0)
[2024-11-27 06:05] LABS: HEMATOCRIT 30.8 % (37.0-47.0); MEAN CELL VOLUME 87.5 fl (81.0-99.0); MEAN CORPUSCULAR HGB 26.4 pg (27.0-31.0); MEAN CORPUSCULAR HGB CONC 30.2 g/dl (33.0-37.0); MEAN PLATELET VOLUME 10.6 fl (9.6-12.3); PLATELET COUNT AUTOMATED 286 10*3/uL (130-400); RED BLOOD COUNT 3.52 10*6/uL (4.10-5.10); RED CELL DISTRI WIDTH 14.6 % (0-14.5); WHITE BLOOD COUNT 2.2 10*3/uL (4.8-10.8)
[2024-11-27 06:11] LABS: MANUAL DIFF REFLEX YES
[2024-11-27 06:52] LABS: PLATELET SUFFICIENCY NORMAL (NORMAL); TOTAL CELLS COUNTED 100 #CELLS
[2024-11-27 06:53] LABS: BURR CELLS FEW; SPHEROCYTES FEW
[2024-11-27 10:46] VITALS: BP 112/73
[2024-11-27 16:00] VITALS: BP 106/53
[2024-11-27 20:00] VITALS: BP 120/60
[2024-11-27] MEDS ORDERED: DALVANCE500 MG IV (23:23)
[2024-11-28] VITALS: BP 93/38
[2024-11-28 02:15] VITALS: BP 95/38
[2024-11-28] MEDS ORDERED: SODIUM CHLORIDE 0.9% 500 ML IV SCH (03:05)
[2024-11-28 08:00] VITALS: BP 131/59
[2024-11-28] MEDS ORDERED: DALVANCE500 MG IV (11:11)
[2024-11-28 12:00] VITALS: BP 97/54
[2024-11-28] MEDS ORDERED: NYST SUSP PO (12:46)
[2024-11-28] MEDS ORDERED: KIMYRSA1200 MG IV (15:55)
[2024-11-28 16:00] VITALS: BP 130/62
[2024-11-28 21:18] VITALS: BP 118/58
[2024-11-29] VITALS: BP 97/42
[2024-11-29 06:52] LABS: POTASSIUM 3.4 mmol/L (3.4-5.1); TOTAL PROTEIN 6.1 gm/dL (6.0-8.0)
[2024-11-29 08:00] VITALS: BP 106/42
[2024-11-29 12:00] VITALS: BP 123/68
[2024-11-29] MEDS ORDERED: TEFLARO600 MG IV (12:35)
[2024-11-29 17:00] VITALS: BP 95/45
[2024-11-29 20:00] VITALS: BP 132/67
[2024-11-30] VITALS: BP 98/60
[2024-11-30] MEDS ORDERED: TEMAZEPAM 15 MG CAP PO PRN (02:05)
[2024-11-30 06:58] LABS: HEMATOCRIT 31.9 % (37.0-47.0); MEAN CELL VOLUME 87.6 fl (81.0-99.0); MEAN CORPUSCULAR HGB 26.4 pg (27.0-31.0); MEAN CORPUSCULAR HGB CONC 30.1 g/dl (33.0-37.0); MEAN PLATELET VOLUME 9.3 fl (9.6-12.3); PLATELET COUNT AUTOMATED 314 10*3/uL (130-400); RED BLOOD COUNT 3.64 10*6/uL (4.10-5.10); RED CELL DISTRI WIDTH 15.1 % (0-14.5); WHITE BLOOD COUNT 4.7 10*3/uL (4.8-10.8)
[2024-11-30 07:29] LABS: MANUAL DIFF REFLEX YES
[2024-11-30 07:30] LABS: POTASSIUM 3.4 mmol/L (3.4-5.1)
[2024-11-30 08:00] VITALS: BP 99/63
[2024-11-30 08:06] LABS: ATYPICAL LYMPHS 9 % (0-0); BASOPHILS 2 % (0-1); POLYCHROMASIA SLIGHT; SCHISTOCYTES FEW; TOTAL CELLS COUNTED 100 #CELLS
[2024-11-30 08:07] LABS: PLATELET SUFFICIENCY NORMAL (NORMAL); TARGET CELLS FEW
[2024-11-30 11:50] VITALS: BP 116/59
[2024-11-30] MEDS ORDERED: BENADRYL ALLERG25 M5 PO (12:46)
[2024-11-30] MEDS ORDERED: OXYCODONE5 M1 PO (12:46)
== END 2024-11-30 15:15 | DRG 871 ==
LOC: ED 05:12 → 4E 07:07 → EDHOLD 07:07 → 4E 11-27 07:58
PROVIDERS: Internal Medicine; Internal Medicine Infectious Disease; Student in an Organized Health Care Education/Training Program; ADMIT Internal Medicine; ATTEND Internal Medicine
DX: A41.9 Sepsis, unspecified organism (principal); N17.0 Acute kidney failure with tubular necrosis; E87.1 Hypo-osmolality and hyponatremia; E44.0 Moderate protein-calorie malnutrition; M86.8X8 Other osteomyelitis, other site; T36.8X5A Adverse effect of other systemic antibiotics, initial encounter; E66.811 Obesity, class 1; J44.9 Chronic obstructive pulmonary disease, unspecified; I10 Essential (primary) hypertension; M17.12 Unilateral primary osteoarthritis, left knee; D64.9 Anemia, unspecified; R65.20 Severe sepsis without septic shock; R68.89 Other general symptoms and signs; Z91.040 Latex allergy status; Z83.3 Family history of diabetes mellitus; Z82.49 Family history of ischemic heart disease and other diseases of the circulatory system; Z68.31 Body mass index [BMI] 31.0-31.9, adult

== ENCOUNTER 2024-12-04 23:33 | Inpatient (IN) | payer MEDICARE, OTHER ==
[~2024-12-04] VITALS: Ht 160 cm; Wt 91.2 kg
[~2024-12-04 23:33] MED LIST changes: +ACETAMINOPHEN500 M5 PO; +BENADRYL ALLERG25 M5 PO; +CEFEPIME HYDROCH2 GM IJ; +DALVANCE500 MG IV; +FISH OIL 1,2001 EACH PO; +GOOD SENSE ASP325 MG PO; +IRON325 M1 PO; +KIMYRSA1200 MG IV; +LUTEIN6 M2 PO; +NYST SUSP PO; +NYSTATIN1000000 UN PO; +OMEPRAZOLE40 MG PO; +OXYCODONE5 M1 PO; +SENNA-LAX8.6 MG PO; +SEROQUEL25 MG PO; +TEFLARO600 MG IV; +VANCOMYCIN1.5 GM/300 IV; +VITAMIN C500 M4 PO; +VITAMIN D3125 MC1 PO
[2024-12-04 23:44] VITALS: BP 156/89
[2024-12-05 00:30] LABS: HEMATOCRIT 26.6 % (37.0-47.0); MEAN CORPUSCULAR HGB 27.1 pg (27.0-31.0); MEAN CORPUSCULAR HGB CONC 30.5 g/dl (33.0-37.0); MEAN PLATELET VOLUME 9.2 fl (9.6-12.3); PLATELET COUNT AUTOMATED 217 10*3/uL (130-400); RED BLOOD COUNT 2.99 10*6/uL (4.10-5.10); RED CELL DISTRI WIDTH 16.2 % (0-14.5); WHITE BLOOD COUNT 7.5 10*3/uL (4.8-10.8)
[2024-12-05 00:31] LABS: MANUAL DIFF REFLEX YES
[2024-12-05 00:48] LABS: POTASSIUM 3.2 mmol/L (3.4-5.1)
[2024-12-05] MEDS ORDERED: Dexamethasone Sodium Phospha 4 MG/ML VIAL IV ONE (00:55)
[2024-12-05 01:51] LABS: ATYPICAL LYMPHS 2 % (0-0); PLATELET SUFFICIENCY NORMAL (NORMAL); TOTAL CELLS COUNTED 100 #CELLS
[2024-12-05] MEDS ORDERED: OXYCODONE HCL5 MG PO (03:09)
[2024-12-05] MEDS ORDERED: FLORASTOR250 MG PO (03:10)
[2024-12-05] MEDS ORDERED: [UNRECOGNIZED DRUG - OTHER] MM (03:11)
[2024-12-05] MEDS ORDERED: ORAJEL MM (03:11)
[2024-12-05] MEDS ORDERED: Ondansetron4 MG PO (03:12)
[2024-12-05 04:14] VITALS: BP 167/83
[2024-12-05] MEDS ORDERED: SODIUM CHLORIDE 0.9% 1,000 ML IV ONE ×2 (04:25→18:15)
[2024-12-05 06:54] LABS: BILIRUBIN Negative (Negative); BLOOD 1+ (Negative); CLARITY Clear (Clear); COLOR Yellow (Yellow); GLUCOSE Negative (Negative); KETONE Trace (Negative); LEUKO ESTERASE Negative (Negative); NITRITE Negative (Negative); SPECIFIC GRAVITY 1.015 (1.001-1.030); UROBILINOGEN 0.2 E.U./dl (0.0-1.0)
[2024-12-05 07:33] LABS: BACTERIA TRACE; WHITE BLOOD CELL CAST 0-2
[2024-12-05 07:43] VITALS: BP 128/64
[2024-12-05] MEDS ORDERED: POTASSIUM CHLORIDE 20 MEQ TAB PO ONE (07:45)
[2024-12-05] MEDS ORDERED: SODIUM CHLORIDE 0.9% 1,000 ML IV SCH (08:00)
[2024-12-05 11:03] VITALS: BP 128/68
[2024-12-05] MEDS ORDERED: Acetaminophen/Hydrocodone 5 MG/325 MG TABLET PO PRN (12:10)
[2024-12-05] MEDS ORDERED: Ondansetron Hydrochloride 4 MG/2 ML VIAL IV PRN (12:10)
[2024-12-05] MEDS ORDERED: ACETAMINOPHEN 325 MG TAB PO PRN (12:10)
[2024-12-05] MEDS ORDERED: Albuterol Sulf/Ipratropium 3 ML VIAL NEB SCH ×2 (12:35→18:30)
[2024-12-05] MEDS ORDERED: VANCOMYCIN HCL 125 MG CAPSULE PO SCH (14:00)
[2024-12-05 18:10] VITALS: BP 159/63
[2024-12-05] MEDS ORDERED: diphenhydrAMINE hydrochloride 25 MG CAP PO PRN (18:15)
[2024-12-05] MEDS ORDERED: DEXTROSE 5% IN LACTATED RINGER 1,000 ML IV SCH (19:25)
[2024-12-05 20:00] VITALS: BP 135/62
[2024-12-05] MEDS ORDERED: GUAIFENESIN 600 MG TAB ER PO SCH (22:00)
[2024-12-05] MEDS ORDERED: HEPARIN SODIUM 5,000 UNIT/ML VIAL SC SCH (22:00)
[2024-12-05] MEDS ORDERED: METRONIDAZOLE 500 MG TAB PO SCH (22:00)
[2024-12-05] MEDS ORDERED: QUETIAPINE FUMARATE 25 MG TAB PO SCH (22:00)
[2024-12-05] MEDS ORDERED: CEFTAROLINE FOSAMIL IV SCH (22:00)
[2024-12-05] MEDS ORDERED: NYSTATIN 500,000 UNITS/5 ML UDC PO SCH (22:00)
[2024-12-06] VITALS: BP 134/64
[2024-12-06 06:03] LABS: HEMATOCRIT 23.3 % (37.0-47.0); MEAN CELL VOLUME 88.3 fl (81.0-99.0); MEAN CORPUSCULAR HGB 27.3 pg (27.0-31.0); MEAN CORPUSCULAR HGB CONC 30.9 g/dl (33.0-37.0); MEAN PLATELET VOLUME 10.2 fl (9.6-12.3); NUCLEATED RED BLOOD CELL 0.2 % (0.0-0.0); PLATELET COUNT AUTOMATED 179 10*3/uL (130-400); RED BLOOD COUNT 2.64 10*6/uL (4.10-5.10); RED CELL DISTRI WIDTH 16.2 % (0-14.5)
[2024-12-06 06:14] LABS: MANUAL DIFF REFLEX YES
[2024-12-06 07:01] LABS: TOTAL PROTEIN 5.9 gm/dL (6.0-8.0)
[2024-12-06 07:11] LABS: ATYPICAL LYMPHS 11 % (0-0); BASOPHILS 1 % (0-1); BURR CELLS FEW; OVALOCYTES FEW; POLYCHROMASIA SLIGHT; TARGET CELLS FEW; TOTAL CELLS COUNTED 100 #CELLS
[2024-12-06 07:12] LABS: PLATELET SUFFICIENCY NORMAL (NORMAL); ROULEAUX SLIGHT
[2024-12-06 07:13] LABS: SCHISTOCYTES FEW
[2024-12-06 08:00] VITALS: BP 127/57
[2024-12-06] MEDS ORDERED: POTASSIUM CHLORIDE 20 MEQ TAB PO ONE (08:10)
[2024-12-06] MEDS ORDERED: FERROUS SULFATE 325 MG TAB PO SCH (10:00)
[2024-12-06] MEDS ORDERED: Lactobacillus Acidophilus/LA 1 TAB TAB PO SCH (10:00)
[2024-12-06] MEDS ORDERED: ASCORBIC ACID 500 MG TAB PO SCH (10:00)
[2024-12-06] MEDS ORDERED: Cholecalciferol 2,000 UNIT TABLET (50 MCG) PO SCH (10:00)
[2024-12-06] MEDS ORDERED: ASPIRIN 325 MG TAB PO SCH (10:00)
[2024-12-06 12:00] VITALS: BP 130/60
[2024-12-06] MEDS ORDERED: VANCOMYCIN HCL 125 MG CAPSULE PO SCH (14:00)
[2024-12-06 16:00] VITALS: BP 120/60
[2024-12-06] MEDS ORDERED: [UNRECOGNIZED DRUG - OTHER] IV SCH (16:30)
[2024-12-06] MEDS ORDERED: DEXTROSE IV SCH (16:30)
[2024-12-06] MEDS ORDERED: POTASSIUM CHLORIDE 20 MEQ IV SCH (16:30)
[2024-12-06] MEDS ORDERED: VANCOCIN125 M1 PO (17:52)
[2024-12-06 20:00] VITALS: BP 136/58
[2024-12-07] VITALS (8 sets, daily range): BP systolic 133–167; BP diastolic 55–87
[2024-12-07] MEDS ORDERED: Menthol/Zinc Oxide 4 GM THIN T PRN (00:40)
[2024-12-07 06:40] LABS: HEMATOCRIT 22.7 % (37.0-47.0); MEAN CELL VOLUME 90.1 fl (81.0-99.0); PLATELET COUNT AUTOMATED 163 10*3/uL (130-400); RED BLOOD COUNT 2.52 10*6/uL (4.10-5.10); RED CELL DISTRI WIDTH 16.4 % (0-14.5); WHITE BLOOD COUNT 9.8 10*3/uL (4.8-10.8)
[2024-12-07 06:43] LABS: MANUAL DIFF REFLEX YES
[2024-12-07 07:01] LABS: POTASSIUM 3.1 mmol/L (3.4-5.1); TOTAL PROTEIN 5.8 gm/dL (6.0-8.0)
[2024-12-07 08:23] LABS: TOTAL CELLS COUNTED 100 #CELLS
[2024-12-07 08:24] LABS: ATYPICAL LYMPHS 15 % (0-0)
[2024-12-07 08:25] LABS: PLATELET SUFFICIENCY NORMAL (NORMAL); POLYCHROMASIA SLIGHT; ROULEAUX MODERATE
[2024-12-07] MEDS ORDERED: SODIUM CHLORIDE 0.9% 500 ML IV ONE (09:31)
[2024-12-07 12:39] LABS: HEMATOCRIT 26.5 % (37.0-47.0); MEAN CELL VOLUME 89.8 fl (81.0-99.0); MEAN CORPUSCULAR HGB 27.8 pg (27.0-31.0); MEAN CORPUSCULAR HGB CONC 30.9 g/dl (33.0-37.0); MEAN PLATELET VOLUME 9.8 fl (9.6-12.3); PLATELET COUNT AUTOMATED 163 10*3/uL (130-400); RED BLOOD COUNT 2.95 10*6/uL (4.10-5.10); RED CELL DISTRI WIDTH 16.2 % (0-14.5); WHITE BLOOD COUNT 10.9 10*3/uL (4.8-10.8)
[2024-12-07 12:42] LABS: MANUAL DIFF REFLEX YES
[2024-12-07 13:06] LABS: HEMOGOLBIN A1C 5.6 % (4.8-5.6)
[2024-12-07 13:10] LABS: ATYPICAL LYMPHS 6 % (0-0); TOTAL CELLS COUNTED 100 #CELLS
[2024-12-07 13:12] LABS: PLATELET SUFFICIENCY NORMAL (NORMAL); POLYCHROMASIA SLIGHT; ROULEAUX MODERATE
[2024-12-07] MEDS ORDERED: OXYCODONE HCL5 MG PO (13:31)
[2024-12-07] MEDS ORDERED: APAP325 MG PO (13:31)
[2024-12-07] MEDS ORDERED: LACTINEX 0.2 MG1 TAB PO (13:31)
[2024-12-07] MEDS ORDERED: K-TAB20 MEQ PO (13:40)
== END 2024-12-07 15:51 | DRG 871 ==
LOC: ED 23:33 → 4E 12-05 08:01 → EDHOLD 12-05 08:01 → 4E 12-05 17:53
PROVIDERS: Internal Medicine; Occupational Therapist; Student in an Organized Health Care Education/Training Program; ADMIT Internal Medicine; ATTEND Internal Medicine
PROC: 30233N1 Transfusion of Nonautologous Red Blood Cells into Peripheral Vein, Percutaneous Approach (ICD-10-PCS; principal; 2024-12-07)
DX: A41.9 Sepsis, unspecified organism (principal); G93.41 Metabolic encephalopathy; J12.9 Viral pneumonia, unspecified; N17.0 Acute kidney failure with tubular necrosis; A04.72 Enterocolitis due to Clostridium difficile, not specified as recurrent; E44.0 Moderate protein-calorie malnutrition; M86.8X8 Other osteomyelitis, other site; I10 Essential (primary) hypertension; Z96.652 Presence of left artificial knee joint; M17.12 Unilateral primary osteoarthritis, left knee; R74.01 Elevation of levels of liver transaminase levels; E66.811 Obesity, class 1; G89.29 Other chronic pain; D64.9 Anemia, unspecified; R62.7 Adult failure to thrive; E87.6 Hypokalemia; Z91.040 Latex allergy status; Z83.3 Family history of diabetes mellitus; Z82.49 Family history of ischemic heart disease and other diseases of the circulatory system; Z82.3 Family history of stroke; Z68.35 Body mass index [BMI] 35.0-35.9, adult

== ENCOUNTER → 2025-01-24 | Outpatient (CLI) | payer MEDICARE, OTHER ==
[~2025-01-24] MED LIST changes: +APAP325 MG PO; +DOXYCYCLINE MO100 MG PO; +FLORASTOR250 MG PO; +K-TAB20 MEQ PO; +LACTINEX 0.2 MG1 TAB PO; +LEVOFLOXAC500 MG/100 IV; +LEVOFLOXACIN500 MG PO; +LOSARTAN POTAS100 M1 PO; +LOSARTAN-HCTZ1 EAC1 PO; +ORAJEL MM; +OXYCODONE HCL5 MG PO; +Ondansetron4 MG PO; +PREMIERPRO RX100 M1 IV; +VANCOCIN125 M1 PO; +[UNRECOGNIZED DRUG - OTHER] MM
[2025-01-24 13:28] LABS: BASO % 0.5 % (0.0-1.0); EOS # 0.4 10*3/uL (0.0-0.4); HEMATOCRIT 25.6 % (37.0-47.0); MEAN CELL VOLUME 87.1 fl (81.0-99.0); MEAN CORPUSCULAR HGB 26.9 pg (27.0-31.0); MEAN CORPUSCULAR HGB CONC 30.9 g/dl (33.0-37.0); MEAN PLATELET VOLUME 9.5 fl (9.6-12.3); NEUT # 2.4 10*3/uL (2.3-7.9); NEUT % 42.1 % (47.0-73.0); PLATELET COUNT AUTOMATED 304 10*3/uL (130-400); RED BLOOD COUNT 2.94 10*6/uL (4.10-5.10); RED CELL DISTRI WIDTH 17.5 % (0-14.5); WHITE BLOOD COUNT 5.7 10*3/uL (4.8-10.8)
[2025-01-24 13:37] LABS: ALKALINE PHOSPHATASE 120 U/L (46-116); BUN 12 mg/dl (9-23); CHLORIDE 106 mmol/L (98-107); LIPASE 106 U/L (12-53); POTASSIUM 4.2 mmol/L (3.4-5.1); SGPT/ALT 40 U/L (5-49); TOTAL PROTEIN 6.5 gm/dL (6.0-8.0)
[2025-01-24 13:40] LABS: VITAMIN D, 25-HYDROXY 59.2 ng/mL (30-100)
== END | disposition home or self-care (01) ==
LOC: LAB 08:46
PROVIDERS: Family Medicine; ATTEND Registered Nurse
DX: K85.90 Acute pancreatitis without necrosis or infection, unspecified (principal); K86.3 Pseudocyst of pancreas; E55.9 Vitamin D deficiency, unspecified; R53.83 Other fatigue; M17.12 Unilateral primary osteoarthritis, left knee; L23.0 Allergic contact dermatitis due to metals; M86.662 Other chronic osteomyelitis, left tibia and fibula

== ENCOUNTER → 2025-02-07 | Outpatient (CLI) | payer MEDICARE, OTHER ==
[2025-02-07 09:48] LABS: BASO % 0.6 % (0.0-1.0); EOS # 0.9 10*3/uL (0.0-0.4); EOS % 16.7 % (1.0-4.0); HEMATOCRIT 27.9 % (37.0-47.0); MEAN CELL VOLUME 89.7 fl (81.0-99.0); MEAN CORPUSCULAR HGB CONC 31.2 g/dl (33.0-37.0); MEAN PLATELET VOLUME 8.9 fl (9.6-12.3); MONO # 0.7 10*3/uL (0.1-1.0); MONO % 12.8 % (3.0-9.0); NEUT # 1.8 10*3/uL (2.3-7.9); NEUT % 35.1 % (47.0-73.0); PLATELET COUNT AUTOMATED 341 10*3/uL (130-400); RED BLOOD COUNT 3.11 10*6/uL (4.10-5.10); RED CELL DISTRI WIDTH 17.9 % (0-14.5); WHITE BLOOD COUNT 5.1 10*3/uL (4.8-10.8)
[2025-02-07 10:24] LABS: ALKALINE PHOSPHATASE 103 U/L (46-116); BUN 8 mg/dl (9-23); CHLORIDE 104 mmol/L (98-107); LIPASE 51 U/L (12-53); POTASSIUM 3.9 mmol/L (3.4-5.1); SGPT/ALT 19 U/L (5-49); TOTAL PROTEIN 7.1 gm/dL (6.0-8.0)
== END | disposition home or self-care (01) ==
LOC: LAB 09:22
PROVIDERS: ATTEND Registered Nurse
DX: K85.90 Acute pancreatitis without necrosis or infection, unspecified (principal); K86.3 Pseudocyst of pancreas

== ENCOUNTER → 2025-02-21 | Outpatient (CLI) | payer MEDICARE, OTHER ==
[2025-02-21 08:38] LABS: BASO % 1.1 % (0.0-1.0); EOS # 0.4 10*3/uL (0.0-0.4); EOS % 10.6 % (1.0-4.0); HEMATOCRIT 31.1 % (37.0-47.0); MEAN CELL VOLUME 89.4 fl (81.0-99.0); MEAN CORPUSCULAR HGB 27.6 pg (27.0-31.0); MEAN CORPUSCULAR HGB CONC 30.9 g/dl (33.0-37.0); MEAN PLATELET VOLUME 9.2 fl (9.6-12.3); MONO # 0.6 10*3/uL (0.1-1.0); MONO % 15.1 % (3.0-9.0); NEUT # 1.1 10*3/uL (2.3-7.9); NEUT % 30.1 % (47.0-73.0); PLATELET COUNT AUTOMATED 304 10*3/uL (130-400); RED BLOOD COUNT 3.48 10*6/uL (4.10-5.10); RED CELL DISTRI WIDTH 15.5 % (0-14.5); WHITE BLOOD COUNT 3.8 10*3/uL (4.8-10.8)
[2025-02-21 09:12] LABS: ALKALINE PHOSPHATASE 97 U/L (46-116); BUN 14 mg/dl (9-23); CHLORIDE 104 mmol/L (98-107); LIPASE 45 U/L (12-53); POTASSIUM 3.9 mmol/L (3.4-5.1); SGPT/ALT 18 U/L (5-49); TOTAL PROTEIN 7.5 gm/dL (6.0-8.0)
== END | disposition home or self-care (01) ==
LOC: LAB 08:11
PROVIDERS: ATTEND Registered Nurse
DX: Z01.812 Encounter for preprocedural laboratory examination (principal); K85.90 Acute pancreatitis without necrosis or infection, unspecified; K86.3 Pseudocyst of pancreas; E78.00 Pure hypercholesterolemia, unspecified; T84.84XA Pain due to internal orthopedic prosthetic devices, implants and grafts, initial encounter; Y92.89 Other specified places as the place of occurrence of the external cause

== ENCOUNTER → 2025-04-13 | Outpatient (CLI) | payer MEDICARE, OTHER ==
[2025-04-13 08:47] LABS: MEAN CELL VOLUME 90.9 fl (81.0-99.0); MEAN CORPUSCULAR HGB 27.5 pg (27.0-31.0); MEAN CORPUSCULAR HGB CONC 30.3 g/dl (33.0-37.0); MEAN PLATELET VOLUME 8.7 fl (9.6-12.3); RED BLOOD COUNT 3.63 10*6/uL (4.10-5.10); RED CELL DISTRI WIDTH 13.6 % (0-14.5)
[2025-04-13 09:36] LABS: ALKALINE PHOSPHATASE 105 U/L (46-116); BUN 17 mg/dl (9-23); CHLORIDE 103 mmol/L (98-107); CHOLESTEROL 266 mg/dL (<200); LDL CHOLESTEROL 166 mg/dL (9-159); POTASSIUM 4.5 mmol/L (3.4-5.1); SGPT/ALT 13 U/L (5-49); TOTAL PROTEIN 7.7 gm/dL (6.0-8.0); TRIGLYCERIDES 82 mg/dl (<150)
[2025-04-13 09:39] LABS: VITAMIN D, 25-HYDROXY 32.3 ng/mL (30-100)
== END | disposition home or self-care (01) ==
LOC: LAB 08:20
PROVIDERS: ATTEND Family Medicine
DX: I10 Essential (primary) hypertension (principal); E78.00 Pure hypercholesterolemia, unspecified; R53.83 Other fatigue; D64.9 Anemia, unspecified; E55.9 Vitamin D deficiency, unspecified

== ENCOUNTER → 2025-05-22 | Outpatient (CLI) | payer MEDICARE, OTHER ==
[2025-05-22 08:43] LABS: HEMATOCRIT 36.2 % (37.0-47.0); MEAN CELL VOLUME 88.3 fl (81.0-99.0); MEAN CORPUSCULAR HGB 26.8 pg (27.0-31.0); MEAN CORPUSCULAR HGB CONC 30.4 g/dl (33.0-37.0); RED BLOOD COUNT 4.1 10*6/uL (4.10-5.10); RED CELL DISTRI WIDTH 13.2 % (0-14.5); WHITE BLOOD COUNT 3.3 10*3/uL (4.8-10.8)
[2025-05-22 09:55] LABS: ALKALINE PHOSPHATASE 130 U/L (46-116); BUN 12 mg/dl (9-23); CHLORIDE 105 mmol/L (98-107); CHOLESTEROL 257 mg/dL (<200); CPK 60 U/L (34-171); FREE T4 0.94 ng/dl (0.89-1.76); LDL CHOLESTEROL 155 mg/dL (9-159); POTASSIUM 3.8 mmol/L (3.4-5.1); SGPT/ALT 18 U/L (5-49); TRIGLYCERIDES 101 mg/dl (<150); VITAMIN D, 25-HYDROXY 32.5 ng/mL (30-100)
== END | disposition home or self-care (01) ==
LOC: LAB 08:13
PROVIDERS: ATTEND Family Medicine
DX: E78.00 Pure hypercholesterolemia, unspecified (principal); E56.9 Vitamin deficiency, unspecified; M25.50 Pain in unspecified joint; E74.00 Glycogen storage disease, unspecified; K21.9 Gastro-esophageal reflux disease without esophagitis; M79.10 Myalgia, unspecified site; F41.1 Generalized anxiety disorder; E55.9 Vitamin D deficiency, unspecified

== ENCOUNTER → 2025-06-05 | Outpatient (CLI) | payer MEDICARE, OTHER | END | disposition home or self-care (01) | LOC: US 10:12 | PROVIDERS: ATTEND Nurse Practitioner Women's Health | DX: Z12.31 Encounter for screening mammogram for malignant neoplasm of breast (principal); R10.2 Pelvic and perineal pain; R92.313 Mammographic fatty tissue density, bilateral breasts ==

== ENCOUNTER → 2025-06-26 | Outpatient (CLI) | payer MEDICARE, OTHER ==
[2025-06-26 08:16] LABS: MEAN CELL VOLUME 89.4 fl (81.0-99.0); MEAN CORPUSCULAR HGB 26.8 pg (27.0-31.0); MEAN PLATELET VOLUME 8.9 fl (9.6-12.3); NUCLEATED RED BLOOD CELL 0.0 % (0.0-0.0); NUCLEATED RED BLOOD CELL 0.0 10*3/uL (0.0-0.0); PLATELET COUNT AUTOMATED 270.0 10*3/uL (130-400); RED CELL DISTRI WIDTH 13.9 % (0-14.5)
[2025-06-26 08:55] LABS: BUN 17 mg/dl (9-23); CPK 70 U/L (34-171); LDL CHOLESTEROL 132 mg/dL (9-159); SGPT/ALT 25 U/L (5-49)
== END | disposition home or self-care (01) ==
LOC: LAB 08:00
PROVIDERS: ATTEND Family Medicine
DX: E78.00 Pure hypercholesterolemia, unspecified (principal)

== ENCOUNTER → 2025-08-18 | Outpatient (CLI) | payer MEDICARE, OTHER ==
[2025-08-18 09:25] LABS: BUN 17 mg/dl (9-23); CPK 65 U/L (34-171); LDL CHOLESTEROL 120 mg/dL (9-159); SGPT/ALT 36 U/L (5-49)
== END | disposition home or self-care (01) ==
LOC: LAB 08:20
PROVIDERS: ATTEND Family Medicine
DX: E78.00 Pure hypercholesterolemia, unspecified (principal)

== ENCOUNTER → 2025-11-18 | Outpatient (CLI) | payer MEDICARE, OTHER ==
[2025-11-18 09:08] LABS: MEAN CELL VOLUME 89.7 fl (81.0-99.0); MEAN CORPUSCULAR HGB 27.6 pg (27.0-31.0); MEAN PLATELET VOLUME 9.3 fl (9.6-12.3); NUCLEATED RED BLOOD CELL 0.0 % (0.0-0.0); NUCLEATED RED BLOOD CELL 0.0 10*3/uL (0.0-0.0); PLATELET COUNT AUTOMATED 242.0 10*3/uL (130-400); RED CELL DISTRI WIDTH 13.2 % (0-14.5)
[2025-11-18 10:15] LABS: BUN 16 mg/dl (9-23); CPK 82 U/L (34-171); LDL CHOLESTEROL 154 mg/dL (9-159); SGPT/ALT 31 U/L (5-49)
== END | disposition home or self-care (01) ==
LOC: LAB 08:35
PROVIDERS: ATTEND Family Medicine
DX: I10 Essential (primary) hypertension (principal); K21.9 Gastro-esophageal reflux disease without esophagitis; E78.00 Pure hypercholesterolemia, unspecified; M25.569 Pain in unspecified knee; M25.50 Pain in unspecified joint; E74.9 Disorder of carbohydrate metabolism, unspecified; Z79.899 Other long term (current) drug therapy